=== PATIENT | male | born 1990 | race Two or more races ===

== ENCOUNTER 2020-02-16 23:29 | Observation (INO) | payer BC ==
[~2020-02-16] VITALS: Ht 182.9 cm; Wt 99.5 kg
[2020-02-17] MEDS ORDERED: ONDANSETRON 2MG/ML, 2ML IVPush ONE
[2020-02-17] MEDS ORDERED: ONDANSETRON 2MG/ML, 2ML ONE ×2 (00:24→06:20)
[2020-02-17] MEDS ORDERED: HYDROmorphone 1 MG/ML, 1ML INJ ONE ×2 (00:24→02:23)
[2020-02-17 00:46] LABS: MEAN CORPUSCULAR HEMOGLOBIN 28.6 pg (27.5-34.5); MEAN CORPUSCULAR HGB CONC 33.5 g/dL (33.2-36.2); MEAN PLATELET VOLUME 10.1 fL (7.4-10.4); PLATELET COUNT 237 x10^3/uL (130-400); RED BLOOD COUNT 5.86 x10^6/uL (4.38-5.82); RED CELL DISTRIBUTION WIDTH 12.2 % (9.4-14.8)
[2020-02-17 00:52] LABS: ALANINE AMINOTRANSFERASE 90 U/L (12-78); ALBUMIN 4.4 g/dL (3.4-5.0); ANION GAP 7 mmol/L (5-15); CALCIUM 9.7 mg/dL (8.5-10.1); CHLORIDE 102 mmol/L (98-107)
[2020-02-17 00:54] LABS: ALKALINE PHOSPHATASE 73 U/L (45-117); BILIRUBIN,TOTAL 0.7 mg/dL (0.2-1.0); TOTAL PROTEIN 8.9 g/dL (6.4-8.2)
[2020-02-17 01:12] LABS: MD YES
[2020-02-17 01:15] LABS: BANDS%(MANUAL) 5 % (0-7); LYMPH#(MANUAL) 1.39 x10^3/uL (1-3.4); LYMPHS% (MANUAL) 7 % (22-44); MONOS% (MANUAL) 5 % (2-9); REACTIVE LYMPHS % (MANUAL) 2 % (0-0); SEG#(MANUAL) 16.12 x10^3/uL (1.8-6.8); SEGS% (MANUAL) 81 % (42-75)
[2020-02-17 01:19] LABS: <RBC MORPHOLOGY> NORMAL
[2020-02-17 01:20] LABS: PMNS WITH VACUOLES 1+
[2020-02-17 01:21] LABS: <PLATELET ESTIMATE> ADEQUATE; LARGE PLATELETS 1+
[2020-02-17] MEDS ORDERED: OMNIPAQUE 350 MG/ML, 100ML BOTTLE ONE (01:22)
[2020-02-17] MEDS ORDERED: PIPERACILLIN/TAZO/PMX 3.375GM 50 ML IVPB ONE (02:00)
[2020-02-17] MEDS ORDERED: SODIUM CHLORIDE 0.9% 1,000 ML IV ONE (02:12)
[2020-02-17] MEDS ORDERED: PIPERACILLIN/TAZO/PMX 3.375GM 50 ML ONE (02:13)
[2020-02-17] MEDS ORDERED: ONDANSETRON 2MG/ML, 2ML IVPush PRN (02:30)
[2020-02-17] MEDS ORDERED: SODIUM CHLORIDE FLUSH 10ML SYR IVF PRN (02:30)
[2020-02-17] MEDS ORDERED: HYDROmorphone 1 MG/ML, 1ML INJ IVPush PRN ×2 (02:30)
[2020-02-17] MEDS ORDERED: SODIUM CHLORIDE 0.9% 1,000ML IVBOLUS ONE ×2 (02:30)
[2020-02-17] MEDS ORDERED: PROMETHAZINE 25 MG/ML, 1ML IM PRN (02:30)
--- NOTE | 2020-02-17 02:40 | NUR ---
abx started, delay due to difficulty getting second set of cultures.
--- NOTE | 2020-02-17 02:58 | NUR ---
report to enmanuel gray ready for transport to [facility]
[2020-02-17 03:13] VITALS: BP 136/80
[2020-02-17] MEDS ORDERED: BUPIVACAINE/PF 0.25% ONE (03:14)
[2020-02-17] MEDS ORDERED: EPINEPHRINE 1 MG/ML, 1ML ONE (03:14)
[2020-02-17 04:01] LABS: MICROSCOPIC INDICATED
[2020-02-17] MEDS ORDERED: BUPIVACAINE/PF-EPI 0.25% 1:200K INFIL ONE (05:26)
[2020-02-17] MEDS ORDERED: MIDAZOLAM 1 MG/ML, 2ML ONE (06:14)
[2020-02-17] MEDS ORDERED: FENTANYL PF 100 MCG/2ML ONE (06:14)
[2020-02-17] MEDS ORDERED: GLYCOPYRROLATE 0.2MG/1ML, 5ML ONE (06:20)
[2020-02-17] MEDS ORDERED: KETOROLAC 30 MG/1 ML ONE (06:20)
[2020-02-17] MEDS ORDERED: PROPOFOL 10 MG/ML, 20ML ONE (06:20)
[2020-02-17] MEDS ORDERED: NEOSTIGMINE 1 MG/ML, 10ML ONE (06:20)
[2020-02-17] MEDS ORDERED: DEXAMETHASONE 4 MG/ML, 1ML ONE (06:20)
[2020-02-17] MEDS ORDERED: ROCURONIUM 10MG/ML,5ML ONE (06:20)
[2020-02-17] MEDS ORDERED: FENTANYL PF 100 MCG/2ML IV PRN (07:00)
[2020-02-17] MEDS ORDERED: hydrALAzine 20 MG/ML, 1ML IV PRN (07:00)
[2020-02-17] MEDS ORDERED: KETOROLAC 30 MG/1 ML IV PRN ×2 (07:00→09:00)
[2020-02-17] MEDS ORDERED: OXYcodone 5 MG/5 ML ORAL.SOL UDC PO PRN (07:00)
[2020-02-17] MEDS ORDERED: LABETALOL 5MG/ML, 20ML IV PRN (07:00)
[2020-02-17] MEDS ORDERED: DIAZEPAM 5 MG/ML, 2ML IVPush PRN (07:00)
[2020-02-17] MEDS ORDERED: PROMETHAZINE 25 MG/ML, 1ML IV PRN (07:00)
[2020-02-17] MEDS ORDERED: MEPERIDINE/PF 25MG/0.5ML IVPush PRN (07:00)
[2020-02-17] MEDS ORDERED: HYDROmorphone 2 MG/ML, 1ML IVPush PRN (07:00)
[2020-02-17] MEDS ORDERED: ALBUTEROL SULFATE 2.5 MG/3 ML NPPB PRN (07:00)
[2020-02-17] MEDS ORDERED: ACETAMINOPHEN 325 MG TABLET PO PRN (07:00)
[2020-02-17] MEDS ORDERED: ACETAMINOPHEN 650 MG/20.3 ML UDC ONE (07:26)
[2020-02-17] MEDS ORDERED: LACTATED RINGERS 1,000 ML IVBOLUS ONE (08:00)
[2020-02-17] MEDS ORDERED: MORPHINE SULFATE 4 MG/ML, 1ML IVPush PRN (09:00)
[2020-02-17] MEDS ORDERED: HYDROcodone/APAP 5/325 TABLET PO PRN (09:00)
== END 2020-02-17 13:30 | disposition home or self-care (01) ==
LOC: ED 02-17 01:43 → INTOOBSV 02-17 02:13 → EDIP 02-17 02:13 → 4NE 02-17 03:06 → DCLOUNGE 02-17 13:25
PROVIDERS: ADMIT Surgery; ATTEND Surgery
DX: K35.80 Unspecified acute appendicitis (principal); Z20.828 Contact with and (suspected) exposure to other viral communicable diseases
CPT/HCPCS: 36415; 44970; 74177; 80053; 81001; 83605; 83690; 84145; 85025; 87040; 87635; 88304; 96361; 96365; 96375; 96376; 99285; G0378; J0171; J1100; J1170; J1885; J2250; J2405; J2543; J2704; J2710; J3010; J3490; J7030; J7120; Q9967